=== PATIENT | female | born 1990 | race African-American/Black ===

== ENCOUNTER 2019-08-30 02:35 | Emergency (ER) | payer OTHER ==
[2019-08-30 03:04] VITALS: BMI 28.0
[2019-08-30] MEDS ORDERED: ACETAMINOPHEN 1000 MG/100 ML VIAL (NON FORMULARY) IVPB ONE (03:34)
[2019-08-30] MEDS ORDERED: SODIUM CHLORIDE 0.9% 500 ML INFUS.BAG IV ONE ×2 (03:34→04:44)
[2019-08-30] MEDS ORDERED: ONDANSETRON 4 MG/2 ML VIAL IVPUSH ONE (03:37)
[2019-08-30] MEDS ORDERED: ONDANSETRON 4 MG/2 ML VIAL ONE (03:45)
[2019-08-30] MEDS ORDERED: ACETAMINOPHEN INJECTION 100 ML IVPB ONE (03:45)
--- NOTE | 2019-08-30 03:53 | PDOC ---
History of Present Illness - General Chief Complaint: Nausea/Vomiting Stated Complaint: ABDOMINAL PAIN Time Seen by Provider: 08/30/19 03:33 History Source: Patient Exam Limitations: No Limitations - History of Present Illness Initial Comments: 08/30/19 03:43 28YOF with h/o recently diagnosed foot fungus on terbenafine, who p/w 2 days of nausea, vomiting, diarrhea, and upper abdominal pain similar to symptoms that her sister had in the past week. She denies blood in the vomit or diarrhea but notes bilious vomit this morning. Denies f/c, ELI, back pain, dysuria, hematuria , or any chance of being . States she feels dehydrated and dizzy. Had a flu shot this year. Took Tamiflu 2 weeks ago because there was concern she had been exposed to flu positive patient of hers. Past History - Past Medical History Allergies/Adverse Reactions: Allergies Allergy/AdvReac Type Severity Reaction Status Date / Time No Known Allergies Allergy Verified 08/30/19 03:04 Home Medications: Ambulatory Orders NK [No Known Home Medication] 08/30/19 COPD: No - Psycho Social/Smoking Cessation Hx Smoking History: Never smoked Hx Alcohol Use: No Drug/Substance Use Hx: No Substance Use Type: None Review of Systems - Review of Systems Able to Perform ROS?: Yes Comments:: 08/30/19 03:45 GEN: no fever, chills, night sweats, generalized weakness, malaise, or unintentional weight change HEENT: no ear pain, congestion, sore throat, rhinorrhea, nosebleed, vision change, or eye pain CV: lightheadedness, no chest pain, palpitations, syncope, edema, or exercise intolerance RESP: no cough, wheezing, or SOB GI: abdominal pain, nausea, vomiting, diarrhea, no constipation, appetite change , or white/black/bloody stool : no dysuria, hematuria, frequency, incontinence, retention, pruritis, bleeding, or discharge MSK: no muscle weakness or pain, no muscle wasting, no joint swelling or pain NEURO: no headache, seizure, vertigo, imbalance, numbness, tingling, focal weakness, or difficulty walking/talking PSYCH: no insomnia, behavior change, SI, HI, or substance use SKIN: no prutitis, excessive dryness, jaundice, rash, cuts, or unexplained bruises ROS otherwise negative except as noted in HPI *Physical Exam - Vital Signs Last Vital Signs Temp Pulse Resp BP Pulse Ox 97.8 F 107 H 18 117/81 98 08/30/19 03:02 08/30/19 03:02 08/30/19 03:02 08/30/19 03:02 08/30/19 03:02 - Physical Exam GENERAL: initially a bit uncomfortable-appearing, A/Ox4, mild distress, answers questions appropriately HEENT: PERRLA, EOMI, moist mucous membranes NECK/BACK: no midline ttp, no spinal stepoff or deformity, no hematoma, full ROM , neck supple CARDIOVASCULAR: regular rate/rhythm, normal S1S2, no MGR, strong peripheral pulses, capillary refill <2 seconds, extremities wwp, no edema LUNGS/RESPIRATORY: no respiratory distress, CTAB GI/ABDOMEN: symmetric [id number], normoactive BS, soft, mild epigastric ttp, no midline pulsatile masses : no CVA tenderness EXTREMITIES: no muscle atrophy, no acute deformity SKIN: warm and dry, no pallor, no jaundice, no rash, no bruising, no skin breakdown, no cuts, no lesions NEUROLOGICAL: GCS 15, CN II-XII grossly intact, 5/5 strength proximally and distally, no facial droop ED Treatment Course - LABORATORY CBC & Chemistry Diagram: 08/30/19 03:49 08/30/19 03:49 Medical Decision Making - Medical Decision Making 28YOF p/w epigastric abdominal pain. Initial Vital Signs Temp Pulse Resp BP Pulse Ox 97.8 F 107 H 18 117/81 98 08/30/19 03:02 08/30/19 03:02 08/30/19 03:02 08/30/19 03:02 08/30/19 03:02 Exam: As noted in Physical Exam section. DDX IBNLT: most likely viral syndrome, less likely but still possible influenza , UTI. Much less likely biliary pathology, pancreatitis, appendicitis, PUD, colitis, renal stone, bowel perforation, etc W/U ordered: Labs as noted below TX ordered: [place] Laboratory Tests 08/30/19 08/30/19 08/30/19 03:45 03:49 03:49 WBC 10.5 H RBC 4.76 Hgb 13.3 Hct 40.4 MCV 84.9 MCH 27.9 MCHC 32.9 RDW 14.2 Plt Count 268 MPV 9.6 Absolute Neuts (auto) 9.4 H Neutrophils % 89.5 H Lymphocytes % 4.8 L Monocytes % 5.0 Eosinophils % 0.4 Basophils % 0.3 Nucleated RBC % 0 Sodium 137 Potassium 4.4 Chloride 105 Carbon Dioxide 26 Anion Gap 7 L BUN 10.0 Creatinine 0.8 Est GFR (CKD-EPI)AfAm 117.93 Est GFR (CKD-EPI)NonAf 101.75 Random Glucose 99 Calcium 9.7 Total Bilirubin 0.6 AST 21 ALT 17 Alkaline Phosphatase 77 Total Protein 8.2 Albumin 4.0 Lipase Serum , Qual Negative Urine Color Urine Appearance Urine pH Ur Specific [place] Urine Protein Urine Glucose (UA) Urine Ketones Urine Blood Urine Nitrite Urine Bilirubin Urine Urobilinogen Ur Leukocyte Esterase Influenza A (Rapid) Influenza B (Rapid) 08/30/19 08/30/19 08/30/19 03:49 03:50 06:36 WBC RBC Hgb Hct MCV MCH MCHC RDW Plt Count MPV Absolute Neuts (auto) Neutrophils % Lymphocytes % Monocytes % Eosinophils % Basophils % Nucleated RBC % Sodium Potassium Chloride Carbon Dioxide Anion Gap BUN Creatinine Est GFR (CKD-EPI)AfAm Est GFR (CKD-EPI)NonAf Random Glucose Calcium Total Bilirubin AST ALT Alkaline Phosphatase Total Protein Albumin Lipase 69 L Serum , Qual Urine Color Yellow Urine Appearance Clear Urine pH 7.0 Ur Specific [place] 1.030 Urine Protein Negative Urine Glucose (UA) Negative Urine Ketones 1+ H Urine Blood Negative Urine Nitrite Negative Urine Bilirubin Negative Urine Urobilinogen 1.0 Ur Leukocyte Esterase Negative Influenza A (Rapid) Negative Influenza B (Rapid) Negative The Pt has gotten significant relief of symptoms while in the ED. Workup is not concerning for emergency-level pathology at this time. They are appropriate for discharge with close outpatient follow up. They are comfortable with this plan and will follow up with their primary care provider in 1-3 days. Referral information is also given for GI provider in case sxs do not resolve. They will take Motrin and/or Tylenol for pain. Specific return precautions are discussed and they will come back to the ER if necessary. Discharge - Discharge Information Problems reviewed: Yes Clinical Impression/Diagnosis: Gastroenteritis Condition: Stable Disposition: HOME - Admission No - Follow up/Referral Referrals: ON STAFF,NOT [Primary Care Provider] - - Patient Discharge Instructions Patient Printed Discharge Instructions: Viral Gastroenteritis Additional Instructions: You were seen in the ER for vomiting, diarrhea, and abdominal discomfort. We did an exam, laboratory work, and gave you IV fluids and medications which helped. Your results show nothing concerning at this time. After our assessment , we do not believe you are having a medical emergency at this time, and we believe you are safe to go home. Please follow up with your primary care provider on Sunday. Call their clinic, tell them you were seen in the ER, and tell them you need a follow-up. If you have any new or worsening symptoms, especially blood in the vomit or stool, fainting, severe abdominal pain, or other emergency symptoms, please come back to the ER at any time (24 hours a day ). If you are having severe or life threatening symptoms, or symptoms that make it unsafe to drive or have someone drive you, please call 911. - Post Discharge Activity
[2019-08-30 03:57] LABS: BASO % 0.3 % (0-2.0); EOS % 0.4 % (0-4.5); HEMATOCRIT 40.4 % (32.4-45.2); HEMOGLOBIN 13.3 GM/dL (10.7-15.3); LYMPH % 4.8 % (8-40); MCH 27.9 pg (25.7-33.7); MCHC 32.9 g/dl (32.0-36.0); MEAN CELL VOLUME 84.9 fl (80-96); MEAN PLT VOLUME 9.6 fl (7.5-11.1); NEUT % 89.5 % (42.8-82.8); PLATELET COUNT 268 K/MM3 (134-434); RBC 4.76 M/mm3 (3.60-5.2); RDW 14.2 % (11.6-15.6); WHITE BLOOD COUNT 10.5 K/mm3 (4.0-10.0)
[2019-08-30] MEDS ORDERED: FAMOTIDINE 20 MG/50 ML IVPB 20 MG/50 ML MG IVPB ONE ×2 (04:15→04:17)
[2019-08-30 04:24] LABS: BILIRUBIN,TOTAL 0.6 mg/dL (0.2-1); CALCIUM 9.7 mg/dL (8.5-10.1); CREATININE 0.8 mg/dL (0.55-1.3); POTASSIUM 4.4 mmol/L (3.5-5.1); TOT PROT 8.2 g/dl (6.4-8.2)
--- NOTE | 2019-08-30 04:25 | PDOC ---
Attending Attestation - Resident Resident Name: Chioma Wilson - ED Attending Attestation I have performed the following: I have examined & evaluated the patient, The case was reviewed & discussed with the resident, I agree w/resident's findings & plan, Exceptions are as noted - HPI HPI: 08/30/19 04:21 Ms iSnha is a 28 yo F no significant past medical history She presents to the ER with a complaint of nausea, vomiting, diarrhea, and upper abdominal pain for 2 days Emesis is non bloody but is now bilious No recent travel (+) ill contact = sister (she had similar symptoms this past wee) Pt denies fevers or chills She had noted myalgias, weakness, dizziness - Physicial Exam PE: 08/30/19 04:23 GENERAL: The patient is in no acute distress, pt appears to be uncomfortable ENT: Ears normal, nares patent, oropharynx clear without exudates. Dry mucous membranes. NECK: Normal range of motion, supple LUNGS: Breath sounds equal, clear to auscultation bilaterally. No wheezes, and no crackles. HEART:Regular rate and rhythm, normal S1 and S2 without murmur, rub or gallop. ABDOMEN: Soft, mild diffuse tenderness to palpation, no distention, no involuntary guarding, no rebound EXTREMITIES: Normal range of motion NEUROLOGICAL: Cranial nerves II through XII grossly intact. Normal speech. No focal neurological deficits. SKIN: Warm, Dry, normal turgor, no rashes or lesions noted. - Medical Decision Making 08/30/19 04:24 28 yo F who presents to the ER with a complaint of abdominal pain, nausea, vomiting and diarrhea No fevers Ill contact = sister Will do: Labs IVF Tylenol Anti emetics Re Assess Doubt need for CT 09/01/19 08:21 Laboratory Tests 08/30/19 08/30/19 08/30/19 03:45 03:49 03:49 WBC 10.5 H Hgb 13.3 Hct 40.4 Plt Count 268 BUN 10.0 Creatinine 0.8 Serum , Qual Negative Urine Nitrite Ur Leukocyte Esterase Influenza A (Rapid) Influenza B (Rapid) 08/30/19 08/30/19 03:50 06:36 WBC Hgb Hct Plt Count BUN Creatinine Serum , Qual Urine Nitrite Negative Ur Leukocyte Esterase Negative Influenza A (Rapid) Negative Influenza B (Rapid) Negative Pt will need to be re assessed Pt states she is feeling a bit better
[2019-08-30] MEDS ORDERED: HYOSCYAMINE SULFATE 0.125 MG *ODT PO ONE (05:26)
[2019-08-30 07:21] LABS: URINE APPEARANCE CLEAR; URINE BILIRUBIN NEGATIVE (NEGATIVE); URINE COLOR YELLOW; URINE GLUCOSE (UA) NEGATIVE (NEGATIVE); URINE KETONE 1+ (NEGATIVE); URINE LEUK ESTERASE NEGATIVE (NEGATIVE); URINE NITRITE NEGATIVE (NEGATIVE); URINE PROTEIN NEGATIVE (NEGATIVE)
[2019-08-30] MEDS ORDERED: SODIUM CHLORIDE 0.9% 1000 ML INFUS.BAG IV ONE ×2 (08:16→09:47)
--- NOTE | 2019-08-30 08:18 | PDOC ---
*Physical Exam - Vital Signs Last Vital Signs Temp Pulse Resp BP Pulse Ox 98.5 F 88 18 97/61 100 08/30/19 07:54 08/30/19 07:54 08/30/19 07:54 08/30/19 07:54 08/30/19 07:54 ED Treatment Course - LABORATORY CBC & Chemistry Diagram: 08/30/19 03:49 08/30/19 03:49 - ADDITIONAL ORDERS Additional order review: Laboratory Results 08/30/19 08/30/19 08/30/19 06:36 03:49 03:49 Sodium 137 Potassium 4.4 Chloride 105 Carbon Dioxide 26 Anion Gap 7 L BUN 10.0 Creatinine 0.8 Est GFR (CKD-EPI)AfAm 117.93 Est GFR (CKD-EPI)NonAf 101.75 Random Glucose 99 Calcium 9.7 Total Bilirubin 0.6 AST 21 ALT 17 Alkaline Phosphatase 77 Total Protein 8.2 Albumin 4.0 Lipase 69 L Serum , Qual Urine Color Yellow Urine Appearance Clear Urine pH 7.0 Ur Specific [place] 1.030 Urine Protein Negative Urine Glucose (UA) Negative Urine Ketones 1+ H Urine Blood Negative Urine Nitrite Negative Urine Bilirubin Negative Urine Urobilinogen 1.0 Ur Leukocyte Esterase Negative 08/30/19 03:45 Sodium Potassium Chloride Carbon Dioxide Anion Gap BUN Creatinine Est GFR (CKD-EPI)AfAm Est GFR (CKD-EPI)NonAf Random Glucose Calcium Total Bilirubin AST ALT Alkaline Phosphatase Total Protein Albumin Lipase Serum , Qual Negative Urine Color Urine Appearance Urine pH Ur Specific [place] Urine Protein Urine Glucose (UA) Urine Ketones Urine Blood Urine Nitrite Urine Bilirubin Urine Urobilinogen Ur Leukocyte Esterase 08/30/19 03:49 RBC 4.76 MCV 84.9 MCHC 32.9 RDW 14.2 MPV 9.6 Neutrophils % 89.5 H Lymphocytes % 4.8 L Monocytes % 5.0 Eosinophils % 0.4 Basophils % 0.3 - Medications Given in the ED: ED Medications Discontinued Medications Generic Name Dose Route Start Last Admin Trade Name Freq PRN Reason Stop Dose Admin Acetaminophen 1,000 mg 08/30/19 03:34 08/30/19 03:49 Ofirmev Injection - IVPB 08/30/19 03:35 1,000 mg ONCE ONE Administration Hyoscyamine Sulfate 0.125 mg 08/30/19 05:26 08/30/19 06:55 Levsin Odt - PO 08/30/19 05:27 0.125 mg ONCE ONE Administration Famotidine/Sodium Chloride 20 mg in 50 mls @ 100 mls/hr 08/30/19 04:15 04:19 Pepcid 20 Mg Premixed Ivpb - IVPB 08/30/19 04:44 100 mls/hr ONCE ONE Administration Ondansetron HCl 4 mg 08/30/19 03:37 08/30/19 03:49 Zofran Injection IVPUSH 08/30/19 03:38 4 mg NOW ONE Administration Sodium Chloride 1,000 ml 08/30/19 03:34 08/30/19 03:49 Normal Saline - IV 08/30/19 03:35 1,000 ml ONCE ONE Administration Sodium Chloride 1,000 ml 08/30/19 04:44 08/30/19 04:55 Normal Saline - IV 08/30/19 04:45 1,000 ml ONCE ONE Administration Medical Decision Making - Medical Decision Making 08/30/19 08:17 Pt signed out to me by Dr. Wilson. 28F with generalized abd pain with nausea, vomiting, and diarrhea. Sister had "GI bug". Abd nontender but patient states she still doesn't feel well. Will give another L NS and reassess. 08/30/19 10:14 Upon discharge assessment, pt noted to have systolic BP in the 80's. 1 L NS ordered with improvement of BP. 103/54 last BP. 08/30/19 10:56 Pt's BP improved. Will walk and PO challenge. HR 80's, BP 103/66. 08/30/19 11:54 Tolerated PO with improvement in vitals. Will d/c with PCP f/u. Discharge - Discharge Information Problems reviewed: Yes Clinical Impression/Diagnosis: Gastroenteritis Condition: Stable Disposition: HOME - Admission No - Follow up/Referral Referrals: ON STAFF,NOT [Primary Care Provider] - - Patient Discharge Instructions Patient Printed Discharge Instructions: Viral Gastroenteritis Additional Instructions: You were seen in the ER for vomiting, diarrhea, and abdominal discomfort. We did an exam, laboratory work, and gave you IV fluids and medications which helped. Your results show nothing concerning at this time. After our assessment , we do not believe you are having a medical emergency at this time, and we believe you are safe to go home. Please follow up with your primary care provider on Sunday. Call their clinic, tell them you were seen in the ER, and tell them you need a follow-up. If you have any new or worsening symptoms, especially blood in the vomit or stool, fainting, severe abdominal pain, or other emergency symptoms, please come back to the ER at any time (24 hours a day ). If you are having severe or life threatening symptoms, or symptoms that make it unsafe to drive or have someone drive you, please call 911. - Post Discharge Activity
[2019-08-30] MEDS ORDERED: LACTATED RINGERS SOLUTION 1,000 ML/1,000 ML INFUS.BAG IV SCH (11:00)
[2019-08-30 11:58] VITALS: TEMP 98
[2019-08-30 12:44] VITALS: BP 118/75; PULSE 78
== END 2019-08-30 12:49 | disposition home or self-care (01) ==
LOC: JER 02:35
PROC: 3E033GC Introduction of Other Therapeutic Substance into Peripheral Vein, Percutaneous Approach (ICD-10-PCS; principal; 2019-08-30)
PROC: 3E033GC Introduction of Other Therapeutic Substance into Peripheral Vein, Percutaneous Approach (ICD-10-PCS; 2019-08-30)
PROC: 3E033NZ Introduction of Analgesics, Hypnotics, Sedatives into Peripheral Vein, Percutaneous Approach (ICD-10-PCS; 2019-08-30)
PROC: 3E0337Z Introduction of Electrolytic and Water Balance Substance into Peripheral Vein, Percutaneous Approach (ICD-10-PCS; 2019-08-30)
DX: K52.9 Noninfective gastroenteritis and colitis, unspecified (principal)
CPT/HCPCS: 36415; 80053; 81003; 83690; 84703; 85025; 87077; 87086; 87804; 96365; 96375; 99283-25; J0131; J7030